=== PATIENT | female | born 1955 | race Caucasian/White ===

== ENCOUNTER 2018-03-30 12:26 | Day surgery (SDC) | payer OTHER ==
[~2018-03-30 12:26] MED LIST: ETOMIDATE 20 MG INJ
[2018-03-30] MEDS ORDERED: LIDOCAINE 2% (SDV) 5 ML INJ (14:49)
== END 2018-03-30 16:23 | disposition home or self-care (01) ==
LOC: GIL 12:26
DX: Z12.11 Encounter for screening for malignant neoplasm of colon (principal); D12.2 Benign neoplasm of ascending colon; D12.0 Benign neoplasm of cecum; I11.0 Hypertensive heart disease with heart failure; I50.9 Heart failure, unspecified; I25.10 Atherosclerotic heart disease of native coronary artery without angina pectoris
CPT/HCPCS: 43239; 82962; 88305; 88312